=== PATIENT | male | born 1965 | race Caucasian/White ===

== ENCOUNTER 2022-12-09 07:59 | Outpatient (CLI) | payer BC, SELFPAY | END 2022-12-09 08:00 | disposition home or self-care (01) | PROVIDERS: PCP Physician Assistant Medical; Visit Provider Family Medicine | DX: E78.5 Hyperlipidemia, unspecified (principal); I10 Essential (primary) hypertension; E55.9 Vitamin D deficiency, unspecified; Z12.5 Encounter for screening for malignant neoplasm of prostate; Z11.59 Encounter for screening for other viral diseases | CPT/HCPCS: 80053; 80061; 82306; 84153; 86803 ==

== ENCOUNTER 2024-02-09 12:54 | Outpatient (CLI) | payer OTHER, SELFPAY | END 2024-02-09 12:55 | disposition home or self-care (01) | PROVIDERS: PCP Family Medicine; Visit Provider Physician Assistant Medical | DX: E78.5 Hyperlipidemia, unspecified (principal); I10 Essential (primary) hypertension; E55.9 Vitamin D deficiency, unspecified | CPT/HCPCS: 80053; 80061; 84443 ==

== ENCOUNTER 2024-07-03 06:53 | Outpatient (CLI) | payer OTHER, SELFPAY | END 2024-07-03 06:54 | disposition home or self-care (01) | PROVIDERS: PCP Family Medicine; Visit Provider Family Medicine | DX: Z00.00 Encounter for general adult medical examination without abnormal findings (principal); E78.5 Hyperlipidemia, unspecified; I10 Essential (primary) hypertension; R73.03 Prediabetes; R79.89 Other specified abnormal findings of blood chemistry; E55.9 Vitamin D deficiency, unspecified; Z12.5 Encounter for screening for malignant neoplasm of prostate | CPT/HCPCS: 80053; 80061; 82043; 82306; 82570; G0103 ==

== ENCOUNTER 2024-07-27 11:06 | Outpatient (CLI) | payer OTHER, SELFPAY ==
--- NOTE | 2024-07-27 11:15 | CRLHL7_ITS ---
For Patients: As a result of the Century Cures Act, medical imaging exams and procedure reports are released immediately into your electronic medical record. You may view this report before your referring provider. If you have questions, please contact your health care provider. INDICATION: History of nicotine use. Screening for abdominal aortic aneurysms. TECHNIQUE: Transabdominal and proximal common iliac artery ultrasound. Grayscale images were acquired. FINDINGS: No evidence for aneurysm. Minimal scattered atherosclerotic plaque. Mild ectasia of the abdominal aorta. The proximal aorta measures 2.8 x 2.8 cm in AP and transverse dimension, mid aorta 2.3 x 2.6 cm, and distal aorta 1.9 x 2.3 cm. The right common iliac artery measures 1.3 x 1.5 cm and the left common iliac artery measures 1.2 x 1.5 cm. No periaortic masses. IMPRESSION: Mild ectasia and minimal calcified atherosclerotic plaque. No true aneurysm of the abdominal aorta or proximal common iliac arteries. Dictated by Nacho Motley MD @ 07/27/2024 4:23:50 PM (Electronically Signed)
== END 2024-07-27 11:07 | disposition home or self-care (01) ==
LOC: US 11:10
PROVIDERS: PCP Family Medicine; Visit Provider Family Medicine
DX: Z13.6 Encounter for screening for cardiovascular disorders (principal); I34.0 Nonrheumatic mitral (valve) insufficiency; I77.810 Thoracic aortic ectasia; Z87.891 Personal history of nicotine dependence; R73.03 Prediabetes
CPT/HCPCS: 76706; 93306

== ENCOUNTER 2024-12-04 08:41 | Outpatient (CLI) | payer OTHER, SELFPAY | END 2024-12-04 08:42 | disposition home or self-care (01) | LOC: FRMREF 08:41 | PROVIDERS: PCP Family Medicine; Visit Provider Family Medicine | DX: I10 Essential (primary) hypertension (principal); R73.03 Prediabetes | CPT/HCPCS: 80053 ==

== ENCOUNTER 2025-06-13 09:47 | Outpatient (CLI) | payer OTHER, SELFPAY | END 2025-06-13 09:48 | disposition home or self-care (01) | PROVIDERS: PCP Family Medicine; Visit Provider Family Medicine | DX: R79.89 Other specified abnormal findings of blood chemistry (principal); E78.5 Hyperlipidemia, unspecified; I10 Essential (primary) hypertension; E55.9 Vitamin D deficiency, unspecified; R73.03 Prediabetes; Z12.5 Encounter for screening for malignant neoplasm of prostate | CPT/HCPCS: 80053; 80061; 82043; 82570; G0103 ==